=== PATIENT | female | born 1940 | race Caucasian/White ===

== ENCOUNTER 2021-10-22 13:55 | Outpatient (CLI) | payer MEDICARE | END 2021-10-22 13:56 | disposition home or self-care (01) | LOC: CSHMAMMO 13:55 | PROVIDERS: ATTEND Family Medicine Sports Medicine | DX: Z12.31 Encounter for screening mammogram for malignant neoplasm of breast (principal); Z98.82 Breast implant status | CPT/HCPCS: 77063; 77067 ==

== ENCOUNTER 2024-05-05 13:37 | Outpatient (CLI) | payer MEDICARE | END 2024-05-05 13:38 | disposition home or self-care (01) | LOC: CSHMAMMO 13:37 | PROVIDERS: ATTEND Family Medicine Sports Medicine | DX: N63.41 Unspecified lump in right breast, subareolar (principal) | CPT/HCPCS: 76642; 77065; G0279 ==

== ENCOUNTER 2024-05-26 10:59 | Outpatient (CLI) | payer MEDICARE ==
[2024-05-26 12:43] LABS: Hematocrit 36.7 % (34.9-44.5); Hemoglobin 12.3 g/dL (12.0-15.5); Mean Corpuscular HGB CONC 33.5 g/dL (32.0-36.0); Mean Corpuscular Volume 83.4 fL (81.6-98.3); Mean Platelet Volume 11.5 fL (7.4-10.4); Platelet Count 173 10x3/uL (150-450); RBC Distribution Width 14.9 % (11.5-14.5); White Blood Cell (WBC) Count 5.7 10x3/uL (3.5-10.5)
[2024-05-26 13:06] LABS: Anion Gap 15 mmol/L (10-20); BUN (Urea Nitrogen) 30 mg/dL (9.8-20.1); Calc. Creatinine Clearance 0 mL/min (70-130); Calcium 9.5 mg/dL (7.8-10.44); Carbon Dioxide 23 mmol/L (23-31); Chloride 107 mmol/L (98-107); Estimated GFR 42; Glucose 94 mg/dL (83-110); Sodium 141 mmol/L (136-145)
== END 2024-05-26 11:00 | disposition home or self-care (01) ==
LOC: CSHLAB 10:59
PROVIDERS: ATTEND Surgery
DX: Z01.818 Encounter for other preprocedural examination (principal); C50.911 Malignant neoplasm of unspecified site of right female breast
CPT/HCPCS: 80048; 85027; 93005; 93010

== ENCOUNTER 2024-05-31 06:49 | Day surgery (SDC) | payer MEDICARE ==
[2024-05-26 11:43] VITALS: BMI 25.8
[2024-05-31] MEDS ORDERED: CEFAZOLIN 2 GM VIAL ONE (07:01)
[2024-05-31] MEDS ORDERED: Bupivacaine PF 0.5% 30 ML VIAL ONE (07:01)
[2024-05-31] MEDS ORDERED: EPINEPHrine 1 MG/ML VIAL ONE (07:01)
[2024-05-31] MEDS ORDERED: Isosulfan Blue 50 MG/5 ML VIAL ONE (07:02)
[2024-05-31] MEDS ORDERED: Lidocaine 2% PF 5 ML VIAL ONE (08:33)
[2024-05-31] MEDS ORDERED: fentaNYL 50 mcg/mL 1 mL Vial ONE ×2 (08:40→09:24)
[2024-05-31] MEDS ORDERED: Ondansetron PF 4 MG/2 ML Vial ONE (10:14)
[2024-05-31] MEDS ORDERED: Dexamethasone 4 mg/ml Vial ONE (10:14)
[2024-05-31] MEDS ORDERED: HYDROcodone/Acetaminophen 5/325 mg Tablet ONE (10:49)
== END 2024-05-31 11:30 | disposition home or self-care (01) ==
LOC: CSHSDC 06:49
PROVIDERS: ATTEND Surgery
PROC: 0HBT0ZZ Excision of Right Breast, Open Approach (ICD-10-PCS; principal; 2024-05-31)
DX: C50.811 Malignant neoplasm of overlapping sites of right female breast (principal); E03.9 Hypothyroidism, unspecified; E78.5 Hyperlipidemia, unspecified; I12.9 Hypertensive chronic kidney disease with stage 1 through stage 4 chronic kidney disease, or unspecified chronic kidney disease; N18.9 Chronic kidney disease, unspecified; F41.9 Anxiety disorder, unspecified; K21.9 Gastro-esophageal reflux disease without esophagitis; K44.9 Diaphragmatic hernia without obstruction or gangrene; Z79.899 Other long term (current) drug therapy; Z79.890 Hormone replacement therapy
CPT/HCPCS: 19285; 19301; 76098; C1713; J0171; J0665; J1100; J2001; J2405; J3010; 88307; 88341; 88342; Q9968

== ENCOUNTER 2025-06-22 13:07 | Outpatient (CLI) | payer MEDICARE | END 2025-06-22 13:08 | disposition home or self-care (01) | LOC: CSHMAMMO 13:07 | PROVIDERS: ATTEND Surgery | DX: Z08 Encounter for follow-up examination after completed treatment for malignant neoplasm (principal); Z85.3 Personal history of malignant neoplasm of breast | CPT/HCPCS: 77066; G0279 ==

== ENCOUNTER 2025-08-07 09:21 | Outpatient (CLI) | payer MEDICARE | END 2025-08-07 09:22 | disposition home or self-care (01) | LOC: CSHRAD 09:21 | PROVIDERS: ATTEND Family Medicine Sports Medicine | DX: M79.644 Pain in right finger(s) (principal) ==